=== PATIENT | female | born 1950 | race African-American/Black ===

== ENCOUNTER 2016-08-20 11:40 | Outpatient (CLI) | payer MEDICARE | END 2016-08-20 11:41 | disposition home or self-care (01) | LOC: HPCALD 11:40 | PROVIDERS: ATTEND Family Medicine | DX: Z01.419 Encounter for gynecological examination (general) (routine) without abnormal findings (principal) | CPT/HCPCS: 87480; 87510; 87660; 88142; G0123 ==

== ENCOUNTER 2018-03-05 09:37 | Outpatient (CLI) | payer MEDICARE ==
--- NOTE | 2018-03-05 14:21 | RAD ---
RIGHT KNEE 4 VIEWS: Date: 03/05/18 HISTORY: Right knee pain. FINDINGS: Joint spaces are preserved. Mild tricompartmental osteophytosis. No acute fracture, dislocation, or f luid distention of the suprapatellar bursa. IMPRESSION: Very mild osteoarthritic changes right knee. POS: [facility]
== END 2018-03-05 09:38 | disposition home or self-care (01) ==
LOC: BURRAD 09:37
PROVIDERS: ATTEND Family Medicine
DX: M25.561 Pain in right knee (principal); M17.11 Unilateral primary osteoarthritis, right knee